=== PATIENT | male | born 1935 | race Caucasian/White ===

== ENCOUNTER 2021-03-29 00:36 | Inpatient (IN) | payer MEDICARE ==
[2021-03-29] MEDS ORDERED: cefTRIAXone\\ROCEPHIN 1 GM VIAL ONE (01:14)
[2021-03-29 01:25] LABS: #Basophils 0.1 10x3/uL (0.0-0.2); #Monocytes 1.4 10x3/uL (0.0-1.1); #Neutrophils 13.8 10x3/uL (1.5-8.4); %Basophils 0.3 % (0.0-2.0); %Lymphocytes 7.2 % (18.0-47.0); %Monocytes 8.5 % (0.0-10.0); %Neutrophils 83.5 % (40.0-75.0); Hemoglobin 12.4 g/dL (13.5-17.5); Mean Corpuscular HGB CONC 30.2 g/dL (32.0-36.0); Mean Corpuscular Hemoglobin 28.4 pg (27.0-33.0); Mean Platelet Volume 10.4 fl (7.4-10.4); Platelet Count 177 10x3/uL (150-450); RBC Distribution Width 13.2 % (11.5-14.5); Red Blood Cell (RBC) Count 4.36 10x6/uL (4.32-5.72); White Blood Cell (WBC) Count 16.5 10x3/uL (3.5-10.5)
[2021-03-29 01:40] LABS: ALT (SGPT) 16 U/L (8-55); AST (SGOT) 22 U/L (5-34); Albumin 4.1 g/dL (3.4-4.8); Alkaline Phosphatase 77 U/L (40-110); BUN (Urea Nitrogen) 19 mg/dL (8.4-25.7); Bilirubin, Total 1.1 mg/dL (0.2-1.2); Calc. Creatinine Clearance 0 mL/min (70-130); Calcium 9.6 mg/dL (7.8-10.44); Globulin 3.4 g/dL (2.4-3.5); Glucose 126 mg/dL (83-110); Protein, Total 7.5 g/dL (5.8-8.1)
[2021-03-29 01:47] LABS: Anion Gap 20 mmol/L (10-20); Carbon Dioxide 33 mmol/L (23-31); Chloride 92 mmol/L (98-107); Potassium 3.5 mmol/L (3.5-5.1); Sodium 141 mmol/L (136-145)
[2021-03-29 01:58] LABS: SARS-CoV-2 NAA Rapid Test Not Detected (NotDetected)
[2021-03-29 02:03] LABS: CKMB 3.2 ng/mL (0-6.6)
[2021-03-29 02:04] LABS: Bilirubin 1+ (Negative); Blood, Urine 25 (Negative); Clarity Slightly Cloudy (Clear); Glucose, Urine (Dipstick) Normal (Negative); Ketone, Urine 5 mg/dL (Negative); Leukocyte 25 (Negative); Nitrite Negative (Negative); Protein, Urine (Dipstick) 100 mg/dl (Neg-Trace)
[2021-03-29 02:15] LABS: RBC/HPF 0-3 HPF (0-3)
[2021-03-29 02:16] LABS: WBC/HPF 0-3 HPF (0-3)
[2021-03-29 02:17] LABS: Bacteria/HPF 1+ HPF (None Seen); Mucous/LPF 4+ LPF (<2+); Renal Epithelial 0-3 HPF (None Seen); Squamous Epithelial 0-3 HPF (0-3)
[2021-03-29 04:21] LABS: Lactic Acid 1.1 mmol/L (0.5-2.2)
[2021-03-29 04:47] LABS: Magnesium 1.7 mg/dL (1.6-2.6)
[2021-03-29 04:54] LABS: Troponin I 0.084 ng/mL (< 0.028)
[2021-03-29] MEDS ORDERED: Norepinephrine 8 MG/0.9% NS 250 ML IVPB SCH (05:45)
[2021-03-29] MEDS ORDERED: Lactated Ringer's 1,000 ML IV SCH (05:45)
[2021-03-29 05:53] VITALS: BMI 31.9
[2021-03-29 05:58] LABS: ALV-art Gradient 369.675 mmHg (0-20); Actual Bicarbonate (HCO3a) 38.1 mEq/L (22-28); Base Excess (BEa) 9.5 mEq/L (-2.0 to +3.0); CO2 Tension 75.7 mmHg (35.0-45.0); Calcium, Ionized (arterial) 1.13 mmol/L (1.12-1.30); Carboxyhemoglobin (COHb) 0.4 gm% (0.0-3.0); Hemoglobin (Hb) 11.7 g/dL (14.0-18.0); O2 Tension (PaO2), arterial 106.1 mmHg (> 60.0); Potassium - ABG Lab 3.7 mmol/L (3.70-5.30); Puncture Site LRA; pH, Arterial 7.32 (7.35-7.45)
[2021-03-29] MEDS ORDERED: methylPREDNISolone Sod Succ/PF 125 MG/2 ML VIAL IVP SCH (06:00)
[2021-03-29] MEDS ORDERED: Cefepime 2 GM in Sodium Chloride 0.9% 100 ML IVPB SCH (06:00)
[2021-03-29] MEDS: Sodium Chloride 0.9% 1,000 ML IV SCH (06:09)
[2021-03-29] MEDS ORDERED: Arformoterol 15 MCG/2 ML NEB NEB SCH (06:30)
[2021-03-29] MEDS ORDERED: Potassium Chloride 20 MEQ in Premix Bag 1 BAG IVPB SCH (07:30)
[2021-03-29] MEDS ORDERED: FLU VACC QS2021-22(65YR UP)/PF 240 MCG/0.7 ML SYRINGE IM ONE (08:00)
[2021-03-29] MEDS: Apixaban 5 MG TAB PO SCH ×2 (08:53→20:16)
[2021-03-29] MEDS: Carvedilol 3.125 MG TAB PO SCH ×2 (08:55→17:19)
[2021-03-29] MEDS: Pantoprazole 40 MG VIAL IVP SCH (09:10)
[2021-03-29 10:47] LABS: Troponin I 0.056 ng/mL (< 0.028)
[2021-03-29] MEDS: methylPREDNISolone Sod Succ 40 MG VIAL IVP SCH ×2 (12:06→17:19)
[2021-03-29 13:22] LABS: Legionella Urinary Ag Negative (Negative); Strep pneumo Urine Ag NEGATIVE (NEGATIVE)
[2021-03-29] MEDS: Cefepime 2 GM in Sodium Chloride 0.9% 100 ML IVPB SCH (17:18)
[2021-03-29] MEDS ORDERED: Furosemide 40 MG/4 ML VIAL SLOW IVP SCH (19:00)
[2021-03-29] MEDS: Atorvastatin Calcium 10 MG TAB PO SCH (20:16)
[2021-03-30] MEDS: methylPREDNISolone Sod Succ 40 MG VIAL IVP SCH ×4 (01:27→17:23)
[2021-03-30 04:21] LABS: #Monocytes 0.3 10x3/uL (0.0-1.1); #Neutrophils 8.3 10x3/uL (1.5-8.4); %Basophils 0.1 % (0.0-2.0); %Lymphocytes 4.6 % (18.0-47.0); %Monocytes 3.2 % (0.0-10.0); %Neutrophils 91.7 % (40.0-75.0); Hemoglobin 9.6 g/dL (13.5-17.5); Mean Corpuscular HGB CONC 30.6 g/dL (32.0-36.0); Mean Corpuscular Hemoglobin 28.6 pg (27.0-33.0); Mean Corpuscular Volume 93.5 fl (81.2-95.1); Mean Platelet Volume 10.8 fl (7.4-10.4); Platelet Count 126 10x3/uL (150-450); RBC Distribution Width 13.7 % (11.5-14.5); Red Blood Cell (RBC) Count 3.36 10x6/uL (4.32-5.72); White Blood Cell (WBC) Count 9.1 10x3/uL (3.5-10.5)
[2021-03-30 04:25] LABS: Anion Gap 11 mmol/L (10-20); BUN (Urea Nitrogen) 32 mg/dL (8.4-25.7); Calc. Creatinine Clearance 60 mL/min (70-130); Calcium 8.7 mg/dL (7.8-10.44); Carbon Dioxide 35 mmol/L (23-31); Chloride 97 mmol/L (98-107); Glucose 136 mg/dL (83-110); Potassium 3.4 mmol/L (3.5-5.1); Sodium 140 mmol/L (136-145)
[2021-03-30 05:49] LABS: Magnesium 1.9 mg/dL (1.6-2.6)
[2021-03-30] MEDS: Cefepime 2 GM in Sodium Chloride 0.9% 100 ML IVPB SCH ×2 (05:57→17:22)
[2021-03-30] MEDS: Potassium Chloride 20 MEQ in Premix Bag 1 BAG IVPB SCH ×2 (05:58→08:07)
[2021-03-30] MEDS: Sodium Chloride 0.9% 1,000 ML IV SCH (06:02)
[2021-03-30] MEDS: Carvedilol 3.125 MG TAB PO SCH ×2 (08:58→17:23)
[2021-03-30] MEDS: Pantoprazole 40 MG VIAL IVP SCH (08:58)
[2021-03-30] MEDS: Apixaban 5 MG TAB PO SCH ×2 (08:58→20:08)
[2021-03-30] MEDS ORDERED: Potassium Chloride 20 MEQ TAB PO SCH (12:30)
[2021-03-30] MEDS: ALPRAZolam 0.5 MG TAB PO PRN (12:47)
[2021-03-30] MEDS: Acetaminophen 325 MG TAB PO PRN (12:50)
[2021-03-30] MEDS: Atorvastatin Calcium 10 MG TAB PO SCH (20:08)
[2021-03-31] MEDS: methylPREDNISolone Sod Succ 40 MG VIAL IVP SCH ×4 (00:09→17:33)
[2021-03-31 03:54] LABS: #Monocytes 0.3 10x3/uL (0.0-1.1); #Neutrophils 7.4 10x3/uL (1.5-8.4); %Monocytes 3.4 % (0.0-10.0); %Neutrophils 93.2 % (40.0-75.0); Hemoglobin 9.4 g/dL (13.5-17.5); Mean Corpuscular HGB CONC 30.2 g/dL (32.0-36.0); Mean Corpuscular Hemoglobin 28.5 pg (27.0-33.0); Mean Corpuscular Volume 94.2 fl (81.2-95.1); Mean Platelet Volume 10.5 fl (7.4-10.4); Platelet Count 147 10x3/uL (150-450); RBC Distribution Width 13.8 % (11.5-14.5); White Blood Cell (WBC) Count 7.9 10x3/uL (3.5-10.5)
[2021-03-31 04:12] LABS: Anion Gap 8 mmol/L (10-20); BUN (Urea Nitrogen) 40 mg/dL (8.4-25.7); Calc. Creatinine Clearance 68 mL/min (70-130); Calcium 8.8 mg/dL (7.8-10.44); Carbon Dioxide 36 mmol/L (23-31); Chloride 101 mmol/L (98-107); Glucose 124 mg/dL (83-110); Magnesium 2.2 mg/dL (1.6-2.6); Potassium 4.2 mmol/L (3.5-5.1); Sodium 141 mmol/L (136-145)
[2021-03-31] MEDS: Cefepime 2 GM in Sodium Chloride 0.9% 100 ML IVPB SCH (06:42)
[2021-03-31] MEDS: Pantoprazole 40 MG VIAL IVP SCH (08:31)
[2021-03-31] MEDS: Carvedilol 3.125 MG TAB PO SCH ×2 (08:31→17:33)
[2021-03-31] MEDS: Apixaban 5 MG TAB PO SCH ×2 (08:31→20:45)
[2021-03-31] MEDS: HYDROcodone/Acetaminophen 5/325 mg Tablet PO PRN ×2 (08:35→18:15)
[2021-03-31] MEDS ORDERED: Bisacodyl 10 MG SUPP PR PRN (12:06)
[2021-03-31] MEDS: Atorvastatin Calcium 10 MG TAB PO SCH (20:45)
[2021-03-31] MEDS: guaiFENesin 100 MG/5 ML UDCUP PO SCH (20:47)
[2021-04-01] MEDS: methylPREDNISolone Sod Succ 40 MG VIAL IVP SCH ×5 (01:25→23:54)
[2021-04-01] MEDS: guaiFENesin 100 MG/5 ML UDCUP PO SCH ×4 (02:30→20:38)
[2021-04-01] MEDS: Carvedilol 3.125 MG TAB PO SCH ×2 (08:55→17:01)
[2021-04-01] MEDS: Apixaban 5 MG TAB PO SCH ×2 (08:55→20:38)
[2021-04-01] MEDS: Pantoprazole 40 MG VIAL IVP SCH (08:55)
[2021-04-01] MEDS: Senokot S 8.6-50 MG TAB PO SCH (08:55)
[2021-04-01] MEDS: Acetaminophen 325 MG TAB PO PRN (09:09)
[2021-04-01] MEDS ORDERED: HYDROmorphone 0.5 MG/0.5 ML SYRINGE SLOW IVP SCH (10:30)
[2021-04-01] MEDS: Cyclobenzaprine 10 MG TAB PO PRN (10:31)
[2021-04-01] MEDS: ALPRAZolam 0.5 MG TAB PO PRN (12:35)
[2021-04-01] MEDS: Atorvastatin Calcium 10 MG TAB PO SCH (20:38)
[2021-04-02] MEDS: guaiFENesin 100 MG/5 ML UDCUP PO SCH ×4 (03:18→20:20)
[2021-04-02] MEDS: methylPREDNISolone Sod Succ 40 MG VIAL IVP SCH ×4 (05:18→23:07)
[2021-04-02] MEDS: Carvedilol 3.125 MG TAB PO SCH ×2 (09:01→17:16)
[2021-04-02] MEDS: Apixaban 5 MG TAB PO SCH ×2 (09:01→20:20)
[2021-04-02] MEDS: Senokot S 8.6-50 MG TAB PO SCH (09:01)
[2021-04-02] MEDS: Pantoprazole 40 MG VIAL IVP SCH (09:02)
[2021-04-02] MEDS: Cyclobenzaprine 10 MG TAB PO PRN (09:55)
[2021-04-02] MEDS: HYDROcodone/Acetaminophen 5/325 mg Tablet PO PRN (10:25)
[2021-04-02] MEDS ORDERED: Furosemide 20 MG/2 ML VIAL SLOW IVP SCH (13:00)
[2021-04-02] MEDS: Atorvastatin Calcium 10 MG TAB PO SCH (20:20)
[2021-04-02] MEDS: Acetaminophen 325 MG TAB PO PRN (22:53)
[2021-04-03] MEDS: guaiFENesin 100 MG/5 ML UDCUP PO SCH ×4 (01:58→20:27)
[2021-04-03] MEDS: methylPREDNISolone Sod Succ 40 MG VIAL IVP SCH ×3 (05:08→17:03)
[2021-04-03] MEDS: Furosemide 20 MG/2 ML VIAL SLOW IVP SCH ×2 (05:08→12:51)
[2021-04-03 08:44] LABS: #Monocytes 0.2 10x3/uL (0.0-1.1); #Neutrophils 8.5 10x3/uL (1.5-8.4); %Basophils 0.1 % (0.0-2.0); %Lymphocytes 4.6 % (18.0-47.0); %Monocytes 2.3 % (0.0-10.0); %Neutrophils 90.7 % (40.0-75.0); Mean Corpuscular HGB CONC 30.2 g/dL (32.0-36.0); Mean Corpuscular Hemoglobin 28.2 pg (27.0-33.0); Mean Corpuscular Volume 93.3 fl (81.2-95.1); Mean Platelet Volume 10.4 fl (7.4-10.4); Platelet Count 184 10x3/uL (150-450); RBC Distribution Width 13.2 % (11.5-14.5); White Blood Cell (WBC) Count 9.3 10x3/uL (3.5-10.5)
[2021-04-03 08:47] LABS: BUN (Urea Nitrogen) 47 mg/dL (8.4-25.7); Calc. Creatinine Clearance 63 mL/min (70-130); Calcium 9.2 mg/dL (7.8-10.44); Glucose 173 mg/dL (83-110)
[2021-04-03] MEDS: Pantoprazole 40 MG VIAL IVP SCH (08:49)
[2021-04-03] MEDS: Carvedilol 3.125 MG TAB PO SCH ×2 (08:50→16:39)
[2021-04-03] MEDS: Apixaban 5 MG TAB PO SCH ×2 (08:54→20:28)
[2021-04-03] MEDS: Senokot S 8.6-50 MG TAB PO SCH (08:55)
[2021-04-03] MEDS: Acetaminophen 325 MG TAB PO PRN (08:56)
[2021-04-03] MEDS: ALPRAZolam 0.5 MG TAB PO PRN (08:57)
[2021-04-03 09:11] LABS: Anion Gap 17 mmol/L (10-20); Carbon Dioxide 35 mmol/L (23-31); Chloride 95 mmol/L (98-107); Potassium 3.7 mmol/L (3.5-5.1); Sodium 143 mmol/L (136-145)
[2021-04-03] MEDS: HYDROcodone/Acetaminophen 5/325 mg Tablet PO PRN (11:03)
[2021-04-03] MEDS: Cyclobenzaprine 10 MG TAB PO PRN (12:57)
[2021-04-03] MEDS: Atorvastatin Calcium 10 MG TAB PO SCH (20:28)
[2021-04-04] MEDS: guaiFENesin 100 MG/5 ML UDCUP PO SCH ×4 (03:21→20:14)
[2021-04-04 03:54] LABS: BUN (Urea Nitrogen) 44 mg/dL (8.4-25.7); Calc. Creatinine Clearance 80 mL/min (70-130); Calcium 8.7 mg/dL (7.8-10.44); Glucose 140 mg/dL (83-110)
[2021-04-04 03:55] LABS: #Monocytes 0.6 10x3/uL (0.0-1.1); #Neutrophils 7.4 10x3/uL (1.5-8.4); %Basophils 0.2 % (0.0-2.0); %Lymphocytes 4.6 % (18.0-47.0); %Monocytes 6.9 % (0.0-10.0); %Neutrophils 83.9 % (40.0-75.0); Hemoglobin 10.3 g/dL (13.5-17.5); Mean Corpuscular HGB CONC 30.1 g/dL (32.0-36.0); Mean Corpuscular Hemoglobin 28.1 pg (27.0-33.0); Mean Corpuscular Volume 93.2 fl (81.2-95.1); Mean Platelet Volume 10.2 fl (7.4-10.4); Platelet Count 191 10x3/uL (150-450); RBC Distribution Width 13.5 % (11.5-14.5); Red Blood Cell (RBC) Count 3.67 10x6/uL (4.32-5.72); White Blood Cell (WBC) Count 8.8 10x3/uL (3.5-10.5)
[2021-04-04 04:01] LABS: Anion Gap 15 mmol/L (10-20); Carbon Dioxide 40 mmol/L (23-31); Chloride 92 mmol/L (98-107); Potassium 3.9 mmol/L (3.5-5.1); Sodium 143 mmol/L (136-145)
[2021-04-04] MEDS ORDERED: predniSONE 50 MG TAB PO SCH (08:00)
[2021-04-04] MEDS: Carvedilol 3.125 MG TAB PO SCH ×2 (08:05→15:40)
[2021-04-04] MEDS: ALPRAZolam 0.5 MG TAB PO PRN (08:06)
[2021-04-04] MEDS: Cyclobenzaprine 10 MG TAB PO PRN ×2 (08:06→15:50)
[2021-04-04] MEDS: Pantoprazole 40 MG VIAL IVP SCH (08:11)
[2021-04-04] MEDS: Apixaban 5 MG TAB PO SCH ×2 (08:12→20:13)
[2021-04-04] MEDS: Senokot S 8.6-50 MG TAB PO SCH (08:14)
[2021-04-04] MEDS ORDERED: Furosemide 20 MG/2 ML VIAL SLOW IVP SCH (09:00)
[2021-04-04] MEDS ORDERED: Senokot S 8.6-50 MG TAB PO PRN (11:47)
[2021-04-04] MEDS: Acetaminophen 325 MG TAB PO PRN (12:10)
[2021-04-04] MEDS ORDERED: Lactated Ringer's 500 ML IV SCH (12:15)
[2021-04-04] MEDS: Lidocaine 5% Patch TD SCH (15:40)
[2021-04-04] MEDS: predniSONE 50 MG TAB PO SCH (15:42)
[2021-04-04] MEDS ORDERED: guaiFENesin 100 MG/5 ML UDCUP ONE (19:57)
[2021-04-04] MEDS: Atorvastatin Calcium 10 MG TAB PO SCH (20:13)
[2021-04-05] MEDS: guaiFENesin 100 MG/5 ML UDCUP PO SCH ×4 (04:07→21:46)
[2021-04-05 04:24] LABS: BUN (Urea Nitrogen) 36 mg/dL (8.4-25.7); Calc. Creatinine Clearance 88 mL/min (70-130); Calcium 8.6 mg/dL (7.8-10.44); Glucose 137 mg/dL (83-110)
[2021-04-05 04:25] LABS: Hemoglobin 10.3 g/dL (13.5-17.5); Mean Corpuscular HGB CONC 29.3 g/dL (32.0-36.0); Mean Corpuscular Volume 95.4 fl (81.2-95.1); Platelet Count 196 10x3/uL (150-450); RBC Distribution Width 13.2 % (11.5-14.5); Red Blood Cell (RBC) Count 3.68 10x6/uL (4.32-5.72); White Blood Cell (WBC) Count 8.1 10x3/uL (3.5-10.5)
[2021-04-05 04:32] LABS: Anion Gap 11 mmol/L (10-20); Chloride 95 mmol/L (98-107); Sodium 144 mmol/L (136-145)
[2021-04-05 04:47] LABS: Carbon Dioxide Greater than 37 mmol/L (23-31)
[2021-04-05 05:07] LABS: MDiff Complete? YES
[2021-04-05 05:13] LABS: Band 1 % (5-11); Lymphocytes 6 % (21-51); Monocytes 9 % (0-10); Neutrophil 84 % (42-75)
[2021-04-05 05:14] LABS: Platelet Morphology Comment Appears Adequate; RBC Morphology Normal
[2021-04-05] MEDS: Transdermal Patch Removal TOP SCH (05:43)
[2021-04-05] MEDS: Carvedilol 3.125 MG TAB PO SCH ×2 (08:04→17:19)
[2021-04-05] MEDS: Apixaban 5 MG TAB PO SCH ×2 (08:06→21:46)
[2021-04-05] MEDS: predniSONE 50 MG TAB PO SCH (08:08)
[2021-04-05] MEDS ORDERED: Morphine 20 MG/ML Oral Solution (ROXANOL) SL PRN (16:55)
[2021-04-05] MEDS: Lidocaine 5% Patch TD SCH (17:19)
[2021-04-05] MEDS: Atorvastatin Calcium 10 MG TAB PO SCH (21:46)
[2021-04-06] MEDS: GUAIFENESIN SF SOLN 200 MG/10 ML UDCUP PO SCH ×4 (03:05→21:40)
[2021-04-06 04:07] LABS: BUN (Urea Nitrogen) 34 mg/dL (8.4-25.7); Calc. Creatinine Clearance 100 mL/min (70-130); Calcium 8.6 mg/dL (7.8-10.44); Glucose 105 mg/dL (83-110)
[2021-04-06 04:13] LABS: #Monocytes 0.7 10x3/uL (0.0-1.1); #Neutrophils 8.1 10x3/uL (1.5-8.4); %Basophils 0.4 % (0.0-2.0); %Eosinophils 0.1 % (0.0-6.0); %Lymphocytes 5.7 % (18.0-47.0); %Monocytes 6.9 % (0.0-10.0); Hemoglobin 10.8 g/dL (13.5-17.5); Mean Corpuscular HGB CONC 29.7 g/dL (32.0-36.0); Mean Corpuscular Hemoglobin 28.2 pg (27.0-33.0); Mean Platelet Volume 9.9 fl (7.4-10.4); Platelet Count 216 10x3/uL (150-450); RBC Distribution Width 13.2 % (11.5-14.5); Red Blood Cell (RBC) Count 3.83 10x6/uL (4.32-5.72)
[2021-04-06 04:20] LABS: Anion Gap 14 mmol/L (10-20); Carbon Dioxide 40 mmol/L (23-31); Chloride 94 mmol/L (98-107); Potassium 3.8 mmol/L (3.5-5.1); Sodium 144 mmol/L (136-145)
[2021-04-06] MEDS: Transdermal Patch Removal TOP SCH (06:45)
[2021-04-06] MEDS ORDERED: predniSONE 50 MG TAB PO SCH (09:00)
[2021-04-06] MEDS: Carvedilol 3.125 MG TAB PO SCH ×2 (10:17→18:29)
[2021-04-06] MEDS: Apixaban 5 MG TAB PO SCH ×2 (10:17→21:40)
[2021-04-06] MEDS: Acetaminophen 325 MG TAB PO PRN ×2 (10:20→15:28)
[2021-04-06 10:24] LABS: SARS-CoV-2 PCR by NAA Not Detected (NotDetected)
[2021-04-06] MEDS: Lidocaine 5% Patch TD SCH (15:37)
[2021-04-06] MEDS: Atorvastatin Calcium 10 MG TAB PO SCH (21:51)
[2021-04-07] MEDS: Acetaminophen 325 MG TAB PO PRN (03:03)
[2021-04-07] MEDS: GUAIFENESIN SF SOLN 200 MG/10 ML UDCUP PO SCH ×2 (03:03→09:34)
[2021-04-07] MEDS: Cyclobenzaprine 10 MG TAB PO PRN (03:03)
[2021-04-07] MEDS ORDERED: Lactated Ringer's 500 ML IV SCH (09:30)
[2021-04-07] MEDS: Transdermal Patch Removal TOP SCH (09:34)
[2021-04-07] MEDS: Carvedilol 3.125 MG TAB PO SCH (09:34)
[2021-04-07] MEDS: Apixaban 5 MG TAB PO SCH (09:35)
[2021-04-07 15:57] VITALS: BP 152/72; TEMP 97.4
[2021-04-11] MEDS ORDERED: predniSONE 50 MG TAB PO SCH (08:00)
[2021-04-16] MEDS ORDERED: predniSONE 5 MG TAB PO SCH (08:00)
[2021-04-20] MEDS ORDERED: predniSONE 5 MG TAB PO SCH (08:00)
== END 2021-04-07 16:10 | DRG 871 ==
LOC: CSHERS 00:36 → CSHIMCU 00:37 → CSHTELE 04-05 16:27
PROVIDERS: ADMIT Family Medicine; ATTEND Hospitalist
PROC: 5A09557 Assistance with Respiratory Ventilation, Greater than 96 Consecutive Hours, Continuous Positive Airway Pressure (ICD-10-PCS; principal; 2021-03-29)
PROC: 02HV33Z Insertion of Infusion Device into Superior Vena Cava, Percutaneous Approach (ICD-10-PCS; 2021-03-29)
PROC: B548ZZA Ultrasonography of Superior Vena Cava, Guidance (ICD-10-PCS; 2021-03-29)
DX: A41.9 Sepsis, unspecified organism (principal); J96.21 Acute and chronic respiratory failure with hypoxia; J18.9 Pneumonia, unspecified organism; I50.23 Acute on chronic systolic (congestive) heart failure; J96.22 Acute and chronic respiratory failure with hypercapnia; J44.1 Chronic obstructive pulmonary disease with (acute) exacerbation; J44.0 Chronic obstructive pulmonary disease with (acute) lower respiratory infection; R65.20 Severe sepsis without septic shock; Z20.822 Contact with and (suspected) exposure to COVID-19; I48.91 Unspecified atrial fibrillation; M54.9 Dorsalgia, unspecified; K59.00 Constipation, unspecified; I11.0 Hypertensive heart disease with heart failure; E66.9 Obesity, unspecified; Z51.5 Encounter for palliative care; Z86.73 Personal history of transient ischemic attack (TIA), and cerebral infarction without residual deficits; Z87.891 Personal history of nicotine dependence; Z79.899 Other long term (current) drug therapy; Z99.81 Dependence on supplemental oxygen; Z95.0 Presence of cardiac pacemaker; Z90.49 Acquired absence of other specified parts of digestive tract; Z80.8 Family history of malignant neoplasm of other organs or systems; Z68.31 Body mass index [BMI] 31.0-31.9, adult; Z79.01 Long term (current) use of anticoagulants
CPT/HCPCS: 36415; 36600; 51701; 71045; 80048; 80053; 81003; 81015; 82553; 82805; 83605; 83735; 83880; 84145; 84484; 85025; 87040; 87070; 87086; 87205; 87449; 87633; 87899; 93005; 93010; 93306; 94640; 94660; 94760; 96365; 96366; C9113; J0692; J0696; J1940; J1956; J2920; J2930; J3475; J3480; J3490; J7050; J7120; J7512; J7620; U0002; U0003; U0005